=== PATIENT | female | born 1975 | race Caucasian/White ===

== ENCOUNTER 2017-01-03 07:43 | Emergency (ER) | payer OTHER ==
[2017-01-03 08:00] VITALS: BP 150/94
--- NOTE | 2017-01-03 08:27 | UC ---
UC General HPI - HPI Summary HPI Summary: oral lesions under her tongue x 3 days mild swelling and tenderness. no fever, no chills, mild injury by biting her tongue neck pain for months, no known injury , hx of chronic neck pain and tightness more on the left side, radiating to her jaws and shoulder - History of Current Complaint Chief Complaint: UCDentalProblem Stated Complaint: ORAL COMPLAINT/LEFT SHOULDER PAIN Time Seen by Provider: 01/03/17 07:52 Hx Obtained From: Patient Hx Last Menstrual Period: 01/01/17 Onset/Duration: Gradual Onset, Lasting Days - 3, Still Present Timing: Constant Onset Severity: Moderate Current Severity: Moderate Associated Signs & Symptoms: Negative: Abdominal Pain, Anticoagulation Therapy, Back Pain, Confusion, Cough, Chest Pain, Decreased Responsiveness, Dizziness, Diarrhea, Dysuria, Decreased Oral Intake, Diaphoresis, Edema, Fever, Headache, Hematemesis, Hemoptysis, Immunocompromised, In-Dwelling Medication Device, Melena, Nausea, Palpitations, Recent Medication Changes, Syncope, SOB, Trauma, Vomiting, Wheezing, Weakness - Allergy/Home Medications Allergies/Adverse Reactions: Allergies Allergy/AdvReac Type Severity Reaction Status Date / Time No Known Allergies Allergy Verified 01/03/17 07:59 Home Medications: Home Medications Ranitidine HCl [Zantac] 150 mg PO ONCE PRN 01/03/17 [History Confirmed 01/03/17] PMH/Surg Hx/FS Hx/Imm Hx Previously Healthy: Yes Respiratory History: Pulmonary Embolism Psychological History: Anxiety - Surgical History Surgical History: Yes Surgery Procedure, Year, and Place: C SECTIONS , CYST REMOVAL- BREAST - Family History Known Family History: Negative: Diabetes - Social History Alcohol Use: Rare Substance Use Type: None Smoking Status (MU): Former Smoker Review of Systems Constitutional: Negative Skin: Negative Eyes: Negative ENT: Negative Respiratory: Negative Cardiovascular: Negative Gastrointestinal: Negative Genitourinary: Negative Motor: Negative Neurovascular: Negative Musculoskeletal: Other: - neck pain Neurological: Negative Psychological: Negative Is Patient Immunocompromised?: No All Other Systems Reviewed And Are Negative: Yes Physical Exam Triage Information Reviewed: Yes Appearance: Well-Appearing, No Pain Distress, Well-Nourished Vital Signs: Initial Vital Signs Temp 98.9 F 01/03/17 07:48 Pulse 89 01/03/17 07:48 Resp 20 01/03/17 07:48 BP 150/94 01/03/17 07:48 Eyes: Positive: Conjunctiva Clear ENT: Positive: Normal ENT inspection, Hearing grossly normal, Pharynx normal, Other: - mild swelling of the sublingual salivary glands Neck: Positive: Other: - diffuse tenderness, muscl tightness , decrease ROM on rotation Course/Dx - Differential Dx - Multi-Symptom Provider Diagnoses: salivary gland swelling. neck pain Discharge - Discharge Plan Condition: Stable Disposition: HOME Prescriptions: Cyclobenzaprine TAB* [Flexeril 10 MG TAB*] 10 mg PO BID #20 tab Naproxen [Naproxen 500 mg] 500 mg PO BID #20 tab Patient Education Materials: Neck Pain (ED) Referrals: ARMANI Whitehead [Primary Care Provider] - If Needed Additional Instructions: neck pain: Flexeril and Naproxen 2 x per day use heating pads do daily neck stretches Oral lesions: normal part of the tongue anatomy and salivary glands , no abnormal oral mass or lesions were noted
== END 2017-01-03 08:31 | disposition home or self-care (01) ==
LOC: UCCORT 07:43
DX: K11.8 Other diseases of salivary glands (principal); M54.2 Cervicalgia; F41.9 Anxiety disorder, unspecified; Z86.711 Personal history of pulmonary embolism; Z87.891 Personal history of nicotine dependence
CPT/HCPCS: 99212; G0463

== ENCOUNTER 2017-05-07 09:01 | Emergency (ER) | payer OTHER, MEDICAID ==
[2017-05-07 09:22] VITALS: BP 143/86
--- NOTE | 2017-05-07 09:48 | UC ---
Skin Complaint HPI - HPI Summary HPI Summary: Rash and small prickley rash on the toes. No pain but some burning on the toes with ambulation. NO prior medical concerns except for anxiety. - History of Current Complaint Chief Complaint: UCSkin Time Seen by Provider: 05/07/17 09:33 Stated Complaint: PRICKLEY FEELING IN TOES Hx Obtained From: Patient, Family/Floor Winder Hx Last Menstrual Period: unknown ?: No Onset/Duration: Gradual Onset, Lasting Days Skin Exposure Onset/Duration: Days Ago Timing: Constant Onset Severity: Mild Current Severity: Mild Location: Diffuse, Other - Deon toes. Aggravating Factor(s): Other - walking. Alleviating Factor(s): Nothing Associated Signs & Symptoms: Positive: Rash - Allergy/Home Medications Allergies/Adverse Reactions: Allergies Allergy/AdvReac Type Severity Reaction Status Date / Time No Known Allergies Allergy Verified 05/07/17 09:22 Home Medications: Home Medications ALPRAZolam TAB* [Xanax TAB*] 0.5 mg PO TID PRN 05/07/17 [History Confirmed 05/07] Review of Systems Skin: Rash All Other Systems Reviewed And Are Negative: Yes PMH/Surg Hx/FS Hx/Imm Hx Previously Healthy: No - anxiety. - Surgical History Surgical History: Yes Surgery Procedure, Year, and Place: C SECTIONS , CYST REMOVAL- BREAST - Family History Known Family History: Negative: Diabetes - Social History Lives: With Family Alcohol Use: Rare Substance Use Type: None Smoking Status (MU): Former Smoker Physical Exam Triage Information Reviewed: Yes Appearance: Well-Appearing, No Pain Distress, Well-Nourished Vital Signs: Initial Vital Signs Temp 98.4 F 05/07/17 09:16 Pulse 91 05/07/17 09:16 Resp 16 05/07/17 09:16 BP 143/86 05/07/17 09:16 Pulse Ox 100 05/07/17 09:16 Vital Signs Reviewed: Yes Eyes: Positive: Conjunctiva Clear ENT: Positive: Normal ENT inspection, Pharynx normal, Nasal congestion Neck: Positive: Supple, Nontender, No Lymphadenopathy Respiratory: Positive: Lungs clear, Normal breath sounds, No respiratory distress, No accessory muscle use. Negative: Respiratory distress, Decreased breath sounds, Accessory muscle use, Crackles, Rhonchi, Stridor, Wheezing Cardiovascular: Positive: No Murmur, Pulses Normal, Brisk Capillary Refill Abdomen Description: Positive: Soft. Negative: Distended, Guarding Musculoskeletal: Positive: ROM Intact, No Edema Neurological: Positive: Alert, Muscle Tone Normal. Negative: Fatigued Skin Exam: Other - small pin point red dots scatterred and infrequent onthe toes deon. Skin: Positive: rashes Course/Dx - Diagnoses Provider Diagnoses: likely viral rash. Discharge - Discharge Plan Condition: Good Disposition: HOME Patient Education Materials: Viral Exanthem (ED) Referrals: ARMANI Whitehead [Primary Care Provider] -
== END 2017-05-07 09:47 | disposition home or self-care (01) ==
LOC: UCCORT 09:01
DX: R21 Rash and other nonspecific skin eruption (principal); Z87.891 Personal history of nicotine dependence
CPT/HCPCS: 99211; G0463

== ENCOUNTER 2017-08-28 09:38 | Emergency (ER) | payer OTHER ==
[2017-08-28 09:55] VITALS: BP 147/89
--- NOTE | 2017-08-28 11:01 | UC ---
Skin Complaint HPI - HPI Summary HPI Summary: Pt c/o of possible insect bites to bilateral feet. There are 3-4 "bites" they are erythematous and mild pruritis. BEgan 1 week ago. Pt has two dogs that have fleas and sleep on her feet at night - History of Current Complaint Chief Complaint: UCSkin Time Seen by Provider: 08/28/17 10:03 Stated Complaint: SKIN COMPLAINT FEET & ANKLES Hx Obtained From: Patient Hx Last Menstrual Period: 08/22/17 ?: No Onset/Duration: Sudden Onset, Lasting Days, Still Present Skin Exposure Onset/Duration: Days Ago Timing: Constant Onset Severity: Mild Current Severity: Mild Pain Intensity: 0 Pain Scale Used: 0-10 Numeric Location: Discrete, Foot (Right), Foot (Left) Character: Pruritus, Redness, Raised Aggravating Factor(s): Nothing Alleviating Factor(s): Nothing Associated Signs & Symptoms: Positive: Negative Related History: Insect Bite/Sting - Allergy/Home Medications Allergies/Adverse Reactions: Allergies Allergy/AdvReac Type Severity Reaction Status Date / Time No Known Allergies Allergy Verified 08/28/17 09:52 Review of Systems Constitutional: Negative Skin: Other - insect "bites" Eyes: Negative ENT: Negative Respiratory: Negative Cardiovascular: Negative Gastrointestinal: Negative Genitourinary: Negative Motor: Negative Neurovascular: Negative Musculoskeletal: Negative Neurological: Negative Psychological: Negative Is Patient Immunocompromised?: No All Other Systems Reviewed And Are Negative: Yes PMH/Surg Hx/FS Hx/Imm Hx Previously Healthy: Yes - Surgical History Surgical History: Yes Surgery Procedure, Year, and Place: C SECTIONS , CYST REMOVAL- BREAST - Family History Known Family History: Negative: Diabetes - Social History Occupation: Employed Full-time Lives: With Family Alcohol Use: Rare Substance Use Type: None Smoking Status (MU): Former Smoker Have You Smoked in the Last Year: No Physical Exam Triage Information Reviewed: Yes Appearance: Well-Appearing Vital Signs: Initial Vital Signs Temp 99.1 F 08/28/17 09:50 Pulse 88 08/28/17 09:50 Resp 16 08/28/17 09:50 BP 147/89 08/28/17 09:50 Pulse Ox 100 08/28/17 09:50 Vital Signs Reviewed: Yes Eye Exam: Normal ENT: Positive: Hearing grossly normal Neck exam: Normal Respiratory: Positive: No respiratory distress Musculoskeletal Exam: Normal Neurological Exam: Normal Psychological Exam: Normal Skin Exam: Other - 4 small erythematous areas on scattered areas of bilateral feet. All in various stages of healing. largest 1cm in diameter. Course/Dx - Differential Diagnoses - Skin Complaint Differential Diagnoses: Other - Diagnoses Provider Diagnoses: insect bites. localized reaction Discharge - Sign-Out/Discharge Documenting (check all that apply): Discharge/Admit/Transfer - Discharge Plan Condition: Stable Disposition: HOME Patient Education Materials: Insect Bite or Sting (ED) Referrals: ARMANI Whitehead [Primary Care Provider] - If Needed - Billing Disposition and Condition Condition: STABLE Disposition: HOME
== END 2017-08-28 10:26 | disposition home or self-care (01) ==
LOC: UCCORT 09:38
DX: S90.862A Insect bite (nonvenomous), left foot, initial encounter (principal); S90.861A Insect bite (nonvenomous), right foot, initial encounter; W57.XXXA Bitten or stung by nonvenomous insect and other nonvenomous arthropods, initial encounter; Y93.84 Activity, sleeping; Y92.003 Bedroom of unspecified non-institutional (private) residence as the place of occurrence of the external cause; Z87.891 Personal history of nicotine dependence
CPT/HCPCS: 99211; G0463